=== PATIENT | female | born 1985 | race Caucasian/White ===

== ENCOUNTER 2017-12-04 05:42 | Emergency (ER) | payer OTHER ==
[2017-12-04 06:06] VITALS: TEMP 98.2
[2017-12-04] MEDS ORDERED: ONDANSETRON 4 MG/2 ML VIAL IVPB ONE (06:07)
--- NOTE | 2017-12-04 06:10 | PDOC ---
History of Present Illness - General Chief Complaint: Alcohol intoxication Stated Complaint: INTOX,NAUSEA Time Seen by Provider: 12/04/17 06:05 History Source: Patient Exam Limitations: Intoxication - History of Present Illness Initial Comments: 12/04/17 06:08 32 y/o F with no PMH was brought in by her father because of alcohol intoxication. Patient states that she drank a lot of vodka and gin with her friends and then she started feeling nauseated and lightheaded . Denies vomiting. Denies sob, chest pain, palpitations. Denies fall. Denies numbness or weakness in anypart of body. Denies any other drug use. States she drinks every day and want to go through detox. Ist time she went through rehab in January 2016 in [facility] and she remained clean for a year and then started drinking again when her fiance cancelled the wedding. 12/04/17 06:36 Past History - Past Medical History Allergies/Adverse Reactions: Allergies Allergy/AdvReac Type Severity Reaction Status Date / Time No Known Allergies Allergy Verified 12/04/17 06:19 Home Medications: Ambulatory Orders NK [No Known Home Medication] 12/04/17 - Suicide/Smoking/Psychosocial Hx Smoking History: Current some day smoker Have you smoked in the past 12 months: No Information on smoking cessation initiated: No Hx Alcohol Use: No Drug/Substance Use Hx: No Review of Systems - Review of Systems Constitutional: No: Chills, Diaphoresis, Fever HEENTM: No: Eye Pain, Tearing, Ear Discharge, Nose Congestion, Tinnitus Respiratory: No: Cough, Shortness of Breath, SOB with Exertion Cardiac (ROS): No: Chest Pain, Edema, Lightheadedness, Palpitations ABD/GI: Yes: Nausea. No: Constipated, Diarrhea, Difficulty Swallowing, Vomiting : No: Burning, Dysuria, Discharge Neurological: No: Headache, Numbness *Physical Exam - Vital Signs Last Vital Signs Temp Pulse Resp BP Pulse Ox 98.2 F 101 H 18 125/90 97 12/04/17 05:55 12/04/17 05:55 12/04/17 05:55 12/04/17 05:55 12/04/17 05:55 - Physical Exam General Appearance: Yes: Appropriately Dressed, Mild Distress HEENT: positive: EOMI, Other (pupil dilated ) Neck: positive: Trachea midline, Normal Thyroid, Supple. negative: Tender Respiratory/Chest: positive: Lungs Clear, Normal Breath Sounds. negative: Respiratory Distress, Accessory Muscle Use Cardiovascular: positive: Regular Rhythm, Regular Rate, S1, S2 Gastrointestinal/Abdominal: positive: Normal Bowel Sounds, Flat, Soft. negative : Tender, Guarding, Rebound, Tenderness Musculoskeletal: positive: Normal Inspection. 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 Patient states that she drank a lot of vodka and gin with her friends and then she started feeling nauseated and lightheaded . Denies vomiting. Denies sob, chest pain, palpitations. Denies fall. Denies numbness or weakness in anypart of body. Denies any other drug use. States she drinks every day and want to go through detox. Ist time she went through rehab in January 2016 in [facility] and she remained clean for a year and then started drinking again when her fiance cancelled the wedding. ciwa 2 we will get cbc, cmp, mg urine toxicology. we will give her banana bag and zofran. *DC/Admit/Observation/Transfer Diagnosis at time of Disposition: Alcohol abuse with intoxication - Discharge Dispostion Disposition: HOME Condition at time of disposition: Fair - Referrals Referrals: Alicia Calero MD [Primary Care Provider] - - Patient Instructions Printed Discharge Instructions: DI for Alcohol Abuse - Post Discharge Activity
[2017-12-04] MEDS ORDERED: THIAMINE HCL 100 MG TABLET (FP) PO SCH (06:24)
[2017-12-04] MEDS ORDERED: FOLIC ACID INJECTION - 1 MG, THIAMINE HCL 100 MG, MULTIVIT INJECTION ADULT 10 ML in SOD... IVPB ONE (06:30)
[2017-12-04] MEDS ORDERED: ONDANSETRON 4 MG/2 ML VIAL ONE (06:40)
--- NOTE | 2017-12-04 07:11 | PDOC ---
*Physical Exam - Vital Signs Last Vital Signs Temp Pulse Resp BP Pulse Ox 98.2 F 104 H 17 125/92 95 12/04/17 05:55 12/04/17 06:21 12/04/17 06:21 12/04/17 06:21 12/04/17 06:21 ED Treatment Course - LABORATORY CBC & Chemistry Diagram: 12/04/17 06:57 - Medications Given in the ED: ED Medications Discontinued Medications Generic Name Dose Route Start Last Admin Trade Name Scott CASTANO Reason Stop Dose Admin Ondansetron HCl 4 mg 12/04/17 06:07 12/04/17 06:50 Zofran Injection IVPB 12/04/17 06:08 4 mg ONCE ONE Administration Medical Decision Making - Medical Decision Making Received Sign out from Dr Kevin Lerner this am. 32 y/o F with no PMH was brought in by her father because of alcohol intoxication. Patient states that she drank a lot of vodka and gin with her friends and then she started feeling nauseated and lightheaded . Denies vomiting. Denies sob, chest pain, palpitations. Denies fall. Denies numbness or weakness in anypart of body. Denies any other drug use. States she drinks every day and want to go through detox. Ist time she went through rehab in January 2016 in [facility] and she remained clean for a year and then started drinking again when her fiance cancelled the wedding. ciwa 2 we will get cbc, cmp, mg urine toxicology. we will give her banana bag and zofran. Once pt medically cleared, will transfer to [facility] for Detox. 12/04/17 08:50 Spoke to pt in detail about attending [facility], states she is not interested in going at this time. *DC/Admit/Observation/Transfer Diagnosis at time of Disposition: Alcohol abuse with intoxication - Discharge Dispostion Disposition: HOME Condition at time of disposition: Fair Decision to Admit order: No - Referrals Referrals: Alicia Calero MD [Primary Care Provider] - - Patient Instructions - Post Discharge Activity
--- NOTE | 2017-12-04 07:45 | PDOC ---
Attending Attestation - Resident Resident Name: Ilan Lerner - ED Attending Attestation I have performed the following: I have examined & evaluated the patient, The case was reviewed & discussed with the resident, I agree w/resident's findings & plan, Exceptions are as noted - HPI HPI: 12/04/17 07:38 32y F hx of etoh abuse presents with complaint of nausea and wanting detox. pt states she last had etoh around midnight. denies any current vomiting, hemetemisis, diarrhea, melena, abd pain, cp, sob, leg swelling, headache, dizziness. GENERAL: The patient is awake, alert, and fully oriented, Nontoxic - in no acute distress. atremulous, HEAD: Normocephalic, atraumatic. EYES: extraocular movements intact, sclera anicteric, conjunctiva clear. ENT: Normal voice, Moist mucous membranes. NECK: Normal range of motion, supple LUNGS: Breath sounds equal, clear to auscultation bilaterally. No wheezes, no rhonchi, no rales. HEART: Regular rate and rhythm, normal S1 and S2 without murmur, rub or gallop. ABDOMEN: Soft, nontender No guarding, no rebound. . No CVA tenderness EXTREMITIES: Normal range of motion, no edema. No clubbing or cyanosis. No cords, erythema, or tenderness. NEUROLOGICAL: No facial assymetry, Normal speech, non-ataxic, normal gait PSYCH: Normal mood, normal affect. SKIN: Warm, Dry, normal turgor, pt was given zofran by overnight team along with a bananabag and notes she feels improved. will sara pt detox at [facility] were sent by overnight team - awaiting results
[2017-12-04 07:48] LABS: ANION GAP 13 MMOL/L (8-16); BLOOD UREA NITROGEN 8 mg/dL (7-18); CALCIUM 8.6 mg/dL (8.5-10.1); CHLORIDE 101 mmol/L (98-107); CO2 28 mmol/L (21-32); CREATININE 0.6 mg/dL (0.55-1.3); GLUCOSE,RANDOM 142 mg/dL (74-106); MAGNESIUM 1.7 mg/dL (1.8-2.4); POTASSIUM 4.4 mmol/L (3.5-5.1); SODIUM 141 mmol/L (136-145)
[2017-12-04 08:12] VITALS: BP 114/77; PULSE 90
[2017-12-04] MEDS ORDERED: MULTIVITAMINS (DAILY MVI) TABLET (FP) PO SCH (10:00)
== END 2017-12-04 08:55 | disposition home or self-care (01) ==
LOC: JER 05:42
PROC: 3E033GC Introduction of Other Therapeutic Substance into Peripheral Vein, Percutaneous Approach (ICD-10-PCS; principal; 2017-12-04)
PROC: 3E033GC Introduction of Other Therapeutic Substance into Peripheral Vein, Percutaneous Approach (ICD-10-PCS; 2017-12-04)
DX: F10.120 Alcohol abuse with intoxication, uncomplicated (principal)
CPT/HCPCS: 36415; 80048; 83735; 96365; 96375; 99282-25; J7030